=== PATIENT | male | born 1950 | race African-American/Black ===

== ENCOUNTER 2016-10-25 13:59 | Inpatient (IN) | payer OTHER ==
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
[2016-10-25] MEDS ORDERED: MAGNESIUM CITRATE 300 ML BOTTLE PO PRN (19:23)
[2016-10-25] MEDS ORDERED: LOPERAMIDE HCL 2 MG CAPSULE PO PRN (19:23)
[2016-10-25] MEDS ORDERED: METHADONE HCL 10 MG TABLET (FOR DETOX USE ONLY) PO ONE ×2 (19:23→23:00)
[2016-10-25] MEDS ORDERED: MAG HYDROX/AL HYDROX/SIMETH 30 ML UNIT-DOSE CUP PO PRN (19:23)
[2016-10-25] MEDS ORDERED: MAGNESIUM HYDROX 2400MG/30ML ORAL SUSPENSION 30 ML CUP PO PRN (19:23)
[2016-10-25] MEDS ORDERED: guaiFENesin/D-METHORPHAN HB 10 ML UNIT-DOSE CUPS PO PRN (19:23)
[2016-10-25] MEDS ORDERED: MENTHOL/PHENOL 1 EACH UD MM PRN (19:23)
[2016-10-25] MEDS ORDERED: NICOTINE POLACRILEX 2 MG GUM BC PRN (19:23)
[2016-10-25] MEDS ORDERED: P-EPHED 60MG/TRIPROLIDI 2.5MG TABLET PO PRN (19:23)
[2016-10-25] MEDS: diazePAM 5 MG TABLET PO PRN (20:24)
[2016-10-25 20:38] LABS: URINE APPEARANCE CLOUDY; URINE BILIRUBIN NEGATIVE (NEGATIVE); URINE BLOOD NEGATIVE (NEGATIVE); URINE COLOR YELLOW; URINE GLUCOSE (UA) NEGATIVE (NEGATIVE); URINE KETONE NEGATIVE (NEGATIVE); URINE NITRITE NEGATIVE (NEGATIVE); URINE PROTEIN NEGATIVE (NEGATIVE); URINE UROBILINOGEN NEGATIVE E.U./dl (0.2-1.0)
[2016-10-25 20:41] LABS: URINE LEUK ESTERASE 2+ (NEGATIVE)
[2016-10-25 20:46] LABS: URINE MUCUS RARE; URINE RBC 4 /hpf (0-3); URINE WBC 29 /hpf (3-5); YEAST FEW
[2016-10-25] MEDS: THIAMINE HCL 100 MG TABLET (FP) PO SCH (22:09)
[2016-10-25] MEDS: RANITIDINE HCL 150 MG TABLET (FP) PO SCH (22:10)
[2016-10-25] MEDS: diphenhydrAMINE HCL 50 MG CAPSULE PO PRN (22:10)
[2016-10-26] MEDS: diazePAM 5 MG TABLET PO PRN ×3 (06:00→17:13)
[2016-10-26] MEDS ORDERED: METHADONE HCL 10 MG TABLET (FOR DETOX USE ONLY) PO ONE (10:00)
[2016-10-26] MEDS: RANITIDINE HCL 150 MG TABLET (FP) PO SCH ×2 (10:08→22:04)
[2016-10-26] MEDS: PRENATAL VITAMINS W/ FOLIC ACID TABLET (FP) PO SCH (10:08)
--- NOTE | 2016-10-26 10:08 | PN ---
BHS COWS - Scale Resting Pulse: 1= [place] 81-100 Sweatin=Flushed/Facial Moisture Restless Observation: 1= Difficult to Sit Still Pupil Size: 0= Normal to Room Light Bone or Joint Aches: 1= Mild Discomfort Runny Nose/ Eye Tearin= Nasal Congestion GI Upset > 30mins: 2= Nausea/Diarrhea Tremor Observation of Outstretched Hands: 2= Slight Tremor Visible Yawning Observation: 1= 1-2x During Session Anxiety or Irritability: 2=Irritable/Anxious Goose Flesh Skin: 0=Smooth Skin COWS Score: 13 BHS Progress Note (SOAP) Subjective: Anxiety,tremors,sweating,interrupted sleep,restless. Objective: 10/26/16 10:06 Vital Signs - 8 hr 10/26/16 07:27 Temperature Pulse Rate 95 H Respiratory Rate Blood Pressure 135/81 10/26/16 09:33 Temperature 98.1 F Pulse Rate 88 Respiratory 18 Rate Blood Pressure 138/86 Laboratory Results - last 24 hr 10/25/16 20:07 Urine Color Yellow Urine Appearance Cloudy Urine pH 5.0 Ur Specific [place] 1.020 Urine Protein Negative Urine Glucose (UA) Negative Urine Ketones Negative Urine Blood Negative Urine Nitrite Negative Urine Bilirubin Negative Urine Urobilinogen Negative Ur Leukocyte Esterase 2+ H Urine RBC 4 Urine WBC 29 Ur Epithelial Cells Rare Urine Mucus Rare Urine Yeast Few u/a noted,we'll repeat Assessment: 10/26/16 10:07 Withdrawal sx. Plan: Continue detox
[2016-10-26] MEDS: NICOTINE 14 MG/24 HOURS TOPICAL PATCH TD SCH (10:10)
[2016-10-26 10:23] LABS: MCH 31.5 pg (25.7-33.7); MCHC 33.1 g/dl (32.0-35.9); MEAN CELL VOLUME 95.3 fl (80-96); MEAN PLT VOLUME 8.6 fl (7.5-11.1); PLATELET COUNT 263 K/MM3 (134-434); RDW 13.5 % (11.9-15.9); WHITE BLOOD COUNT 4.6 K/mm3 (4.0-10.0)
[2016-10-26 10:53] LABS: ALBUMIN 3.5 g/dl (3.4-5.0); CALCIUM 8.9 mg/dL (8.5-10.1)
[2016-10-26 11:01] LABS: BILIRUBIN,TOTAL 0.2 mg/dL (0.2-1.0); COCKROFT - GAULT 45.28; CREATININE 1.4 mg/dL (0.7-1.3); TOT PROT 6.4 g/dl (6.4-8.2)
--- NOTE | 2016-10-26 12:08 | CONSULT ---
[facility] Psychiatric Consult - Data Date of interview: 10/26/16 Admission source: [facility] Identifying data: Readmission to [facility] for this 66 y/o AA male seeking detox treatment on for heroin and cocaine dependence.Patient is single without children,homeless,unemployed and supported on Social Security benefits. Substance Abuse History: - Smoking Cessation. Smoking history: Current every day smoker. Have you smoked in the past 12 months: Yes. Aproximately how many cigarettes per day: 10. Cigars Per Day: 0. Hx Chewing Tobacco Use: No. Initiated information on smoking cessation: Yes. 'Breaking Loose' booklet given : 10/25/16. - Substance & Tx. History. Hx Alcohol Use: No. Hx Substance Use: Yes. Substance Use Type: Cocaine, Opiates. Hx Substance Use Treatment: Yes. - Substances Abused. Heroin. Route: Inhalation. Frequency: Daily. Amount used: 10 BAGS. Age of first use: 17. Date of Last Use: 10/24/16. Confirmed by patient. Medical History: Hepatitis C,GERD and past history of surgery for cancer of prostate in 2016 ([facility]). Psychiatric History: Patient denies. Physical/Sexual Abuse/Trauma History: Patient denies. Additional Comment: Urine Drug Screen Results: GURVINDER-Cocaine, OPI-Opiates.Noted. Mental Status Exam - Mental Status Exam Alert and Oriented to: Time, Place, Person Cognitive Function: Good Patient Appearance: Well Groomed Mood: Hopeful, Euthymic Affect: Appropriate, Normal Range Patient Behavior: Appropriate, Cooperative (friendly) Speech Pattern: Clear, Appropriate Voice Loudness: Normal Thought Process: Goal Oriented Thought Disorder: Not Present Hallucinations: Denies Suicidal Ideation: Denies Homicidal Ideation: Denies Insight/Judgement: Fair Sleep: Well Appetite: Good Muscle strength/Tone: Normal Gait/Station: Normal Psychiatric Findings - Problem List ([place] 1, 2,3) (1) Opioid dependence with withdrawal Current Visit: Yes Status: Acute (2) Cocaine dependence, uncomplicated Current Visit: Yes Status: Acute (3) Nicotine dependence Current Visit: Yes Status: Acute Qualifiers: Nicotine product type: cigarettes Substance use status: in withdrawal Qualified Code(s): F17.213 - Nicotine dependence, cigarettes, with withdrawal (4) GERD (gastroesophageal reflux disease) Current Visit: Yes Status: Chronic Qualifiers: Esophagitis presence: without esophagitis Qualified Code(s): K21.9 - Gastro-esophageal reflux disease without esophagitis (5) Essential (primary) hypertension Current Visit: Yes Status: Chronic - Initial Treatment Plan Initial Treatment Plan: Psychoeducation.Detoxification.Observation.
--- NOTE | 2016-10-26 17:19 | EKG ---
Test Reason : Blood Pressure : / mmHG Vent. Rate : 083 BPM Atrial Rate : 083 BPM P-R Int : 136 ms QRS Dur : 086 ms QT Int : 374 ms P-R-T Axes : 072 -16 -51 degrees QTc Int : 439 ms NORMAL SINUS RHYTHM NORMAL ECG WHEN COMPARED WITH ECG OF 25-OCT-2016 19:14, NO SIGNIFICANT CHANGE WAS FOUND Confirmed by EBER WILSON MD ([id number]) on 10/26/2016 5:18:43 PM Referred By: Mark Alicea Confirmed By:EBER WILSON MD
[2016-10-26 19:15] LABS: URINE APPEARANCE CLEAR; URINE BILIRUBIN NEGATIVE (NEGATIVE); URINE BLOOD NEGATIVE (NEGATIVE); URINE COLOR YELLOW; URINE GLUCOSE (UA) NEGATIVE (NEGATIVE); URINE KETONE NEGATIVE (NEGATIVE); URINE LEUK ESTERASE TRACE (NEGATIVE); URINE NITRITE NEGATIVE (NEGATIVE); URINE PROTEIN NEGATIVE (NEGATIVE); URINE UROBILINOGEN NEGATIVE E.U./dl (0.2-1.0)
[2016-10-26 19:36] LABS: CALCIUM OXALATE CRYSTALS RARE /hpf (NONE SEEN); URINE MUCUS RARE; URINE RBC 36 /hpf (0-3); URINE WBC 32 /hpf (3-5)
[2016-10-26] MEDS: THIAMINE HCL 100 MG TABLET (FP) PO SCH (22:04)
[2016-10-26] MEDS: diphenhydrAMINE HCL 50 MG CAPSULE PO PRN (22:04)
[2016-10-27] MEDS: diazePAM 5 MG TABLET PO PRN ×3 (08:46→22:03)
--- NOTE | 2016-10-27 09:57 | PN ---
S COWS - Scale Resting Pulse: 1= [place] 81-100 Sweatin= Chills/Flushing Restless Observation: 3= Extraneous Movement Pupil Size: 1= Pupils >than Normal Bone or Joint Aches: 2= Severe Diffuse Aches Runny Nose/ Eye Tearin= Runny Nose/Eyes GI Upset > 30mins: 2= Nausea/Diarrhea Tremor Observation of Outstretched Hands: 2= Slight Tremor Visible Yawning Observation: 1= 1-2x During Session Anxiety or Irritability: 2=Irritable/Anxious Goose Flesh Skin: 0=Smooth Skin COWS Score: 17 S Progress Note (SOAP) Subjective: ALERT,IRRITABLE,ANXIOUS,INTERRUPTED SLEEP,PAIN IN THE BODY AND BACK,TREMOR Objective: 10/27/16 09:52 Vital Signs Temperature 97.2 F L 10/27/16 06:27 Pulse Rate 74 10/27/16 06:27 Respiratory Rate 18 10/27/16 06:27 Blood Pressure 152/100 10/27/16 06:27 O2 Sat by Pulse Oximetry (%) Laboratory Last Values WBC 4.6 K/mm3 (4.0-10.0) 10/26/16 06:00 RBC 4.38 M/mm3 (4.00-5.60) 10/26/16 06:00 Hgb 13.8 GM/dL (11.7-16.9) D 10/26/16 06:00 Hct 41.8 % (35.4-49) D 10/26/16 06:00 MCV 95.3 fl (80-96) 10/26/16 06:00 MCHC 33.1 g/dl (32.0-35.9) 10/26/16 06:00 RDW 13.5 % (11.9-15.9) 10/26/16 06:00 Plt Count 263 K/MM3 (134-434) 10/26/16 06:00 MPV 8.6 fl (7.5-11.1) 10/26/16 06:00 Sodium 142 mmol/L (136-145) 10/26/16 06:00 Potassium 4.4 mmol/L (3.5-5.1) 10/26/16 06:00 Chloride 105 mmol/L (98-107) 10/26/16 06:00 Carbon Dioxide 30 mmol/L (21-32) 10/26/16 06:00 Anion Gap 7 (8-16) L 10/26/16 06:00 BUN 18 mg/dL (7-18) 10/26/16 06:00 Creatinine 1.4 mg/dL (0.7-1.3) H D 10/26/16 06:00 Creat Clearance w eGFR 50.70 (>60) 10/26/16 06:00 Random Glucose 130 mg/dL (74-106) H D 10/26/16 06:00 Calcium 8.9 mg/dL (8.5-10.1) 10/26/16 06:00 Total Bilirubin 0.2 mg/dL (0.2-1.0) D 10/26/16 06:00 AST 18 U/L (15-37) D 10/26/16 06:00 ALT 17 U/L (12-78) D 10/26/16 06:00 Alkaline Phosphatase 107 U/L (45-117) 10/26/16 06:00 Total Protein 6.4 g/dl (6.4-8.2) D 10/26/16 06:00 Albumin 3.5 g/dl (3.4-5.0) 10/26/16 06:00 Urine Color Yellow 10/26/16 18:30 Urine Appearance Clear 10/26/16 18:30 Urine pH 5.0 (5.0-8.0) 10/26/16 18:30 Ur Specific [place] 1.020 (1.005-1.025) 10/26/16 18:30 Urine Protein Negative (NEGATIVE) 10/26/16 18:30 Urine Glucose (UA) Negative (NEGATIVE) 10/26/16 18:30 Urine Ketones Negative (NEGATIVE) 10/26/16 18:30 Urine Blood Negative (NEGATIVE) 10/26/16 18:30 Urine Nitrite Negative (NEGATIVE) 10/26/16 18:30 Urine Bilirubin Negative (NEGATIVE) 10/26/16 18:30 Urine Urobilinogen Negative E.U./dl (0.2-1.0) 10/26/16 18:30 Ur Leukocyte Esterase Trace (NEGATIVE) H D 10/26/16 18:30 Urine RBC 36 /hpf (0-3) 10/26/16 18:30 Urine WBC 32 /hpf (3-5) 10/26/16 18:30 Ur Epithelial Cells Rare /hpf (FEW) 10/26/16 18:30 Calcium Oxalate Crystal Rare /hpf (NONE SEEN) 10/26/16 18:30 Urine Mucus Rare 10/26/16 18:30 Urine Yeast Few 10/25/16 20:07 RPR Titer Nonreactive (NONREACTIVE) 10/26/16 06:00 PATIENT HAD HISTORY OF CANCER OF PROSTATE S/P SURGERY AT [facility] IN 2016 ASYMPTOMATIC NO URINARY PROBLEM Assessment: 10/27/16 09:55 WITHDRAWAL SYMPTOM Plan: CONTINUE DETOX,ADVISE FOLLOW UP WITH UROLOGIST AT [facility] FOR FOLLOW UP INITIAL GLUCOSE IS 130 WITLL DO FASTING BLOOD GLUCOSE IN AM
[2016-10-27] MEDS ORDERED: METHADONE HCL 5 MG TABLET (FOR DETOX USE ONLY) PO ONE (10:00)
[2016-10-27] MEDS: PRENATAL VITAMINS W/ FOLIC ACID TABLET (FP) PO SCH (10:09)
[2016-10-27] MEDS: NICOTINE 14 MG/24 HOURS TOPICAL PATCH TD SCH (10:09)
[2016-10-27] MEDS: RANITIDINE HCL 150 MG TABLET (FP) PO SCH ×2 (10:09→22:02)
[2016-10-27] MEDS: THIAMINE HCL 100 MG TABLET (FP) PO SCH (22:02)
[2016-10-27] MEDS: diphenhydrAMINE HCL 50 MG CAPSULE PO PRN (22:03)
[2016-10-28] MEDS ORDERED: ONDANSETRON *ODT* 4 MG TABLET SL PRN (09:36)
--- NOTE | 2016-10-28 09:42 | PN ---
BHS Progress Note (SOAP) Subjective: Sweating,interrupted sleep,restless. Objective: 10/28/16 09:38 Vital Signs - 8 hr 10/28/16 10/28/16 10/28/16 03:20 06:08 09:19 Temperature 98.4 F 97.2 F L Pulse Rate 91 H 96 H Respiratory 18 18 20 Rate Blood Pressure 144/90 125/83 Laboratory Tests 10/25/16 10/26/16 10/26/16 20:07 06:00 06:00 WBC 4.6 RBC 4.38 Hgb 13.8 D Hct 41.8 D MCV 95.3 MCHC 33.1 RDW 13.5 Plt Count 263 MPV 8.6 Sodium 142 Potassium 4.4 Chloride 105 Carbon Dioxide 30 Anion Gap 7 L BUN 18 Creatinine 1.4 H D Creat Clearance w eGFR 50.70 POC Glucometer Random Glucose 130 H D Calcium 8.9 Total Bilirubin 0.2 D AST 18 D ALT 17 D Alkaline Phosphatase 107 Total Protein 6.4 D Albumin 3.5 Urine Color Yellow Urine Appearance Cloudy Urine pH 5.0 Ur Specific [place] 1.020 Urine Protein Negative Urine Glucose (UA) Negative Urine Ketones Negative Urine Blood Negative Urine Nitrite Negative Urine Bilirubin Negative Urine Urobilinogen Negative Ur Leukocyte Esterase 2+ H Urine RBC 4 Urine WBC 29 Ur Epithelial Cells Rare Calcium Oxalate Crystal Urine Mucus Rare Urine Yeast Few RPR Titer 10/26/16 10/26/16 10/28/16 06:00 18:30 05:16 WBC RBC Hgb Hct MCV MCHC RDW Plt Count MPV Sodium Potassium Chloride Carbon Dioxide Anion Gap BUN Creatinine Creat Clearance w eGFR POC Glucometer 108 Random Glucose Calcium Total Bilirubin AST ALT Alkaline Phosphatase Total Protein Albumin Urine Color Yellow Urine Appearance Clear Urine pH 5.0 Ur Specific [place] 1.020 Urine Protein Negative Urine Glucose (UA) Negative Urine Ketones Negative Urine Blood Negative Urine Nitrite Negative Urine Bilirubin Negative Urine Urobilinogen Negative Ur Leukocyte Esterase Trace H D Urine RBC 36 Urine WBC 32 Ur Epithelial Cells Rare Calcium Oxalate Crystal Rare Urine Mucus Rare Urine Yeast RPR Titer Nonreactive U/A x 2 grossly abnormal Assessment: 10/28/16 09:40 Withdrawal sx. Elevated wbc in urine Plan: Continue detox nitrofurantoin
[2016-10-28] MEDS ORDERED: NITROFURANTOIN MACROCRYSTAL 50 MG CAPSULE (FP) PO ONE (09:45)
[2016-10-28] MEDS ORDERED: NITROFURANTOIN MACROCRYSTAL 50 MG CAPSULE (FP) PO SCH (09:45)
[2016-10-28] MEDS ORDERED: METHADONE HCL 5 MG TABLET (FOR DETOX USE ONLY) PO ONE (10:00)
[2016-10-28] MEDS: PRENATAL VITAMINS W/ FOLIC ACID TABLET (FP) PO SCH (10:02)
[2016-10-28] MEDS: RANITIDINE HCL 150 MG TABLET (FP) PO SCH ×2 (10:02→22:06)
[2016-10-28] MEDS: NICOTINE 14 MG/24 HOURS TOPICAL PATCH TD SCH (10:03)
[2016-10-28] MEDS: AMMONIUM LACTATE 12% LOTION 225 GM BOTTLE TP SCH (11:26)
[2016-10-28] MEDS: NITROFURANTOIN MACROCRYSTAL 50 MG CAPSULE (FP) PO SCH ×3 (11:28→23:09)
[2016-10-28] MEDS: COLLOIDAL OATMEAL 1 BAR EACH TP PRN (12:42)
[2016-10-28 15:26] LABS: URINE APPEARANCE CLEAR; URINE BILIRUBIN NEGATIVE (NEGATIVE); URINE BLOOD NEGATIVE (NEGATIVE); URINE COLOR LTYELLOW; URINE GLUCOSE (UA) NEGATIVE (NEGATIVE); URINE KETONE NEGATIVE (NEGATIVE); URINE LEUK ESTERASE NEGATIVE (NEGATIVE); URINE NITRITE NEGATIVE (NEGATIVE); URINE PROTEIN NEGATIVE (NEGATIVE); URINE UROBILINOGEN NEGATIVE E.U./dl (0.2-1.0)
[2016-10-28] MEDS: diazePAM 5 MG TABLET PO PRN (17:19)
[2016-10-28] MEDS: THIAMINE HCL 100 MG TABLET (FP) PO SCH (22:06)
[2016-10-28] MEDS: diphenhydrAMINE HCL 50 MG CAPSULE PO PRN (22:07)
[2016-10-29] MEDS: NITROFURANTOIN MACROCRYSTAL 50 MG CAPSULE (FP) PO SCH ×3 (05:03→17:31)
[2016-10-29] MEDS ORDERED: METHADONE HCL 10 MG TABLET (FOR DETOX USE ONLY) PO ONE (10:00)
[2016-10-29] MEDS: PRENATAL VITAMINS W/ FOLIC ACID TABLET (FP) PO SCH (10:04)
[2016-10-29] MEDS: RANITIDINE HCL 150 MG TABLET (FP) PO SCH ×2 (10:04→22:14)
[2016-10-29] MEDS: AMMONIUM LACTATE 12% LOTION 225 GM BOTTLE TP SCH (10:05)
[2016-10-29] MEDS: NICOTINE 14 MG/24 HOURS TOPICAL PATCH TD SCH (10:05)
--- NOTE | 2016-10-29 10:55 | PN ---
BHS Progress Note (SOAP) Subjective: Sweating,interrupted sleep,restless Objective: 10/29/16 10:53 Vital Signs - 8 hr 10/29/16 10/29/16 10/29/16 03:29 06:10 07:41 Temperature 97.6 F Pulse Rate 78 88 Respiratory 18 18 Rate Blood Pressure 165/105 137/72 10/29/16 09:40 Temperature 97.2 F L Pulse Rate 92 H Respiratory 18 Rate Blood Pressure 147/98 Breath Alcohol Content Breath Alcohol Content 0 Laboratory Last Values WBC 4.6 K/mm3 (4.0-10.0) 10/26/16 06:00 RBC 4.38 M/mm3 (4.00-5.60) 10/26/16 06:00 Hgb 13.8 GM/dL (11.7-16.9) D 10/26/16 06:00 Hct 41.8 % (35.4-49) D 10/26/16 06:00 MCV 95.3 fl (80-96) 10/26/16 06:00 MCHC 33.1 g/dl (32.0-35.9) 10/26/16 06:00 RDW 13.5 % (11.9-15.9) 10/26/16 06:00 Plt Count 263 K/MM3 (134-434) 10/26/16 06:00 MPV 8.6 fl (7.5-11.1) 10/26/16 06:00 Sodium 142 mmol/L (136-145) 10/26/16 06:00 Potassium 4.4 mmol/L (3.5-5.1) 10/26/16 06:00 Chloride 105 mmol/L (98-107) 10/26/16 06:00 Carbon Dioxide 30 mmol/L (21-32) 10/26/16 06:00 Anion Gap 7 (8-16) L 10/26/16 06:00 BUN 18 mg/dL (7-18) 10/26/16 06:00 Creatinine 1.4 mg/dL (0.7-1.3) H D 10/26/16 06:00 Creat Clearance w eGFR 50.70 (>60) 10/26/16 06:00 POC Glucometer 108 UNITS (()) 10/28/16 05:16 Random Glucose 130 mg/dL (74-106) H D 10/26/16 06:00 Calcium 8.9 mg/dL (8.5-10.1) 10/26/16 06:00 Total Bilirubin 0.2 mg/dL (0.2-1.0) D 10/26/16 06:00 AST 18 U/L (15-37) D 10/26/16 06:00 ALT 17 U/L (12-78) D 10/26/16 06:00 Alkaline Phosphatase 107 U/L (45-117) 10/26/16 06:00 Total Protein 6.4 g/dl (6.4-8.2) D 10/26/16 06:00 Albumin 3.5 g/dl (3.4-5.0) 10/26/16 06:00 Urine Color Ltyellow 10/28/16 11:15 Urine Appearance Clear 10/28/16 11:15 Urine pH 7.0 (5.0-8.0) D 10/28/16 11:15 Ur Specific [place] 1.020 (1.005-1.025) 10/28/16 11:15 Urine Protein Negative (NEGATIVE) 10/28/16 11:15 Urine Glucose (UA) Negative (NEGATIVE) 10/28/16 11:15 Urine Ketones Negative (NEGATIVE) 10/28/16 11:15 Urine Blood Negative (NEGATIVE) 10/28/16 11:15 Urine Nitrite Negative (NEGATIVE) 10/28/16 11:15 Urine Bilirubin Negative (NEGATIVE) 10/28/16 11:15 Urine Urobilinogen Negative E.U./dl (0.2-1.0) 10/28/16 11:15 Ur Leukocyte Esterase Negative (NEGATIVE) 10/28/16 11:15 Urine RBC 36 /hpf (0-3) 10/26/16 18:30 Urine WBC 32 /hpf (3-5) 10/26/16 18:30 Ur Epithelial Cells Rare /hpf (FEW) 10/26/16 18:30 Calcium Oxalate Crystal Rare /hpf (NONE SEEN) 10/26/16 18:30 Urine Mucus Rare 10/26/16 18:30 Urine Yeast Few 10/25/16 20:07 RPR Titer Nonreactive (NONREACTIVE) 10/26/16 06:00 labs noted Assessment: 10/29/16 10:54 Withdrawal sx. Plan: Continue detox
[2016-10-29] MEDS: amLODIPine BESYLATE 10 MG TABLET (FP) PO SCH (12:45)
--- NOTE | 2016-10-29 14:45 | EKG ---
Test Reason : Blood Pressure : / mmHG Vent. Rate : 093 BPM Atrial Rate : 093 BPM P-R Int : 134 ms QRS Dur : 080 ms QT Int : 360 ms P-R-T Axes : 075 -16 -34 degrees QTc Int : 447 ms NORMAL SINUS RHYTHM SEPTAL INFARCT , AGE UNDETERMINED ABNORMAL ECG NO PREVIOUS ECGS AVAILABLE Confirmed by EBER WILSON MD ([id number]) on 10/26/2016 5:20:32 PM Also confirmed by EBER WILSON MD ([id number]), publications editor RAMU ADKINS ([id number]) on 10/29/2016 2:45:41 PM Referred By: Mark Alicea Confirmed By:EBER WILSON MD
[2016-10-29] MEDS: diphenhydrAMINE HCL 50 MG CAPSULE PO PRN (22:14)
[2016-10-29] MEDS: THIAMINE HCL 100 MG TABLET (FP) PO SCH (22:14)
[2016-10-30] MEDS: NITROFURANTOIN MACROCRYSTAL 50 MG CAPSULE (FP) PO SCH ×5 (00:02→22:59)
[2016-10-30] MEDS ORDERED: METHADONE HCL 5 MG TABLET (FOR DETOX USE ONLY) PO ONE (06:00)
[2016-10-30] MEDS: AMMONIUM LACTATE 12% LOTION 225 GM BOTTLE TP SCH (10:08)
[2016-10-30] MEDS: RANITIDINE HCL 150 MG TABLET (FP) PO SCH ×2 (10:08→22:05)
[2016-10-30] MEDS: NICOTINE 14 MG/24 HOURS TOPICAL PATCH TD SCH (10:08)
[2016-10-30] MEDS: amLODIPine BESYLATE 10 MG TABLET (FP) PO SCH (10:08)
[2016-10-30] MEDS: PRENATAL VITAMINS W/ FOLIC ACID TABLET (FP) PO SCH (10:08)
--- NOTE | 2016-10-30 15:09 | PN ---
BHS Progress Note (SOAP) Subjective: Tremors, Sweating. Objective: PT. A & O X 3, OBSERVED AMBULATING ON UNIT. PT. DENIES CHEST PAIN. 10/30/16 15:05 Vital Signs Temperature 96.8 F L 10/30/16 12:59 Pulse Rate 87 10/30/16 12:59 Respiratory Rate 18 10/30/16 12:59 Blood Pressure 128/83 10/30/16 12:59 O2 Sat by Pulse Oximetry (%) Laboratory Last Values WBC 4.6 K/mm3 (4.0-10.0) 10/26/16 06:00 RBC 4.38 M/mm3 (4.00-5.60) 10/26/16 06:00 Hgb 13.8 GM/dL (11.7-16.9) D 10/26/16 06:00 Hct 41.8 % (35.4-49) D 10/26/16 06:00 MCV 95.3 fl (80-96) 10/26/16 06:00 MCHC 33.1 g/dl (32.0-35.9) 10/26/16 06:00 RDW 13.5 % (11.9-15.9) 10/26/16 06:00 Plt Count 263 K/MM3 (134-434) 10/26/16 06:00 MPV 8.6 fl (7.5-11.1) 10/26/16 06:00 Sodium 142 mmol/L (136-145) 10/26/16 06:00 Potassium 4.4 mmol/L (3.5-5.1) 10/26/16 06:00 Chloride 105 mmol/L (98-107) 10/26/16 06:00 Carbon Dioxide 30 mmol/L (21-32) 10/26/16 06:00 Anion Gap 7 (8-16) L 10/26/16 06:00 BUN 18 mg/dL (7-18) 10/26/16 06:00 Creatinine 1.4 mg/dL (0.7-1.3) H D 10/26/16 06:00 Creat Clearance w eGFR 50.70 (>60) 10/26/16 06:00 POC Glucometer 108 UNITS (()) 10/28/16 05:16 Random Glucose 130 mg/dL (74-106) H D 10/26/16 06:00 Calcium 8.9 mg/dL (8.5-10.1) 10/26/16 06:00 Total Bilirubin 0.2 mg/dL (0.2-1.0) D 10/26/16 06:00 AST 18 U/L (15-37) D 10/26/16 06:00 ALT 17 U/L (12-78) D 10/26/16 06:00 Alkaline Phosphatase 107 U/L (45-117) 10/26/16 06:00 Total Protein 6.4 g/dl (6.4-8.2) D 10/26/16 06:00 Albumin 3.5 g/dl (3.4-5.0) 10/26/16 06:00 Urine Color Ltyellow 10/28/16 11:15 Urine Appearance Clear 10/28/16 11:15 Urine pH 7.0 (5.0-8.0) D 10/28/16 11:15 Ur Specific [place] 1.020 (1.005-1.025) 10/28/16 11:15 Urine Protein Negative (NEGATIVE) 10/28/16 11:15 Urine Glucose (UA) Negative (NEGATIVE) 10/28/16 11:15 Urine Ketones Negative (NEGATIVE) 10/28/16 11:15 Urine Blood Negative (NEGATIVE) 10/28/16 11:15 Urine Nitrite Negative (NEGATIVE) 10/28/16 11:15 Urine Bilirubin Negative (NEGATIVE) 10/28/16 11:15 Urine Urobilinogen Negative E.U./dl (0.2-1.0) 10/28/16 11:15 Ur Leukocyte Esterase Negative (NEGATIVE) 10/28/16 11:15 Urine RBC 36 /hpf (0-3) 10/26/16 18:30 Urine WBC 32 /hpf (3-5) 10/26/16 18:30 Ur Epithelial Cells Rare /hpf (FEW) 10/26/16 18:30 Calcium Oxalate Crystal Rare /hpf (NONE SEEN) 10/26/16 18:30 Urine Mucus Rare 10/26/16 18:30 Urine Yeast Few 10/25/16 20:07 RPR Titer Nonreactive (NONREACTIVE) 10/26/16 06:00 LABS NOTED. 10/30/16 15:07 Assessment: 10/30/16 15:07 WITHDRAWAL SYMPTOMS. Plan: CONTINUE DETOX.
[2016-10-30] MEDS: THIAMINE HCL 100 MG TABLET (FP) PO SCH (22:04)
[2016-10-30] MEDS: diphenhydrAMINE HCL 50 MG CAPSULE PO PRN (22:05)
[2016-10-31] MEDS: NITROFURANTOIN MACROCRYSTAL 50 MG CAPSULE (FP) PO SCH ×4 (05:27→23:26)
[2016-10-31] MEDS: amLODIPine BESYLATE 10 MG TABLET (FP) PO SCH (10:03)
[2016-10-31] MEDS: PRENATAL VITAMINS W/ FOLIC ACID TABLET (FP) PO SCH (10:04)
[2016-10-31] MEDS: RANITIDINE HCL 150 MG TABLET (FP) PO SCH ×2 (10:04→22:02)
[2016-10-31] MEDS: NICOTINE 14 MG/24 HOURS TOPICAL PATCH TD SCH (10:04)
[2016-10-31] MEDS: AMMONIUM LACTATE 12% LOTION 225 GM BOTTLE TP SCH (10:05)
--- NOTE | 2016-10-31 14:26 | PN ---
S Progress Note (SOAP) Subjective: anxious, sweating, nausea, interrupted sleep Objective: 10/31/16 14:24 Last Vital Signs Temp Pulse Resp BP Pulse Ox 98.7 F 93 H 16 133/86 10/31/16 13:07 10/31/16 13:07 10/31/16 13:07 10/31/16 13:07 Laboratory Last Values WBC 4.6 K/mm3 (4.0-10.0) 10/26/16 06:00 RBC 4.38 M/mm3 (4.00-5.60) 10/26/16 06:00 Hgb 13.8 GM/dL (11.7-16.9) D 10/26/16 06:00 Hct 41.8 % (35.4-49) D 10/26/16 06:00 MCV 95.3 fl (80-96) 10/26/16 06:00 MCHC 33.1 g/dl (32.0-35.9) 10/26/16 06:00 RDW 13.5 % (11.9-15.9) 10/26/16 06:00 Plt Count 263 K/MM3 (134-434) 10/26/16 06:00 MPV 8.6 fl (7.5-11.1) 10/26/16 06:00 Sodium 142 mmol/L (136-145) 10/26/16 06:00 Potassium 4.4 mmol/L (3.5-5.1) 10/26/16 06:00 Chloride 105 mmol/L (98-107) 10/26/16 06:00 Carbon Dioxide 30 mmol/L (21-32) 10/26/16 06:00 Anion Gap 7 (8-16) L 10/26/16 06:00 BUN 18 mg/dL (7-18) 10/26/16 06:00 Creatinine 1.4 mg/dL (0.7-1.3) H D 10/26/16 06:00 Creat Clearance w eGFR 50.70 (>60) 10/26/16 06:00 POC Glucometer 108 UNITS (()) 10/28/16 05:16 Random Glucose 130 mg/dL (74-106) H D 10/26/16 06:00 Calcium 8.9 mg/dL (8.5-10.1) 10/26/16 06:00 Total Bilirubin 0.2 mg/dL (0.2-1.0) D 10/26/16 06:00 AST 18 U/L (15-37) D 10/26/16 06:00 ALT 17 U/L (12-78) D 10/26/16 06:00 Alkaline Phosphatase 107 U/L (45-117) 10/26/16 06:00 Total Protein 6.4 g/dl (6.4-8.2) D 10/26/16 06:00 Albumin 3.5 g/dl (3.4-5.0) 10/26/16 06:00 Urine Color Ltyellow 10/28/16 11:15 Urine Appearance Clear 10/28/16 11:15 Urine pH 7.0 (5.0-8.0) D 10/28/16 11:15 Ur Specific [place] 1.020 (1.005-1.025) 10/28/16 11:15 Urine Protein Negative (NEGATIVE) 10/28/16 11:15 Urine Glucose (UA) Negative (NEGATIVE) 10/28/16 11:15 Urine Ketones Negative (NEGATIVE) 10/28/16 11:15 Urine Blood Negative (NEGATIVE) 10/28/16 11:15 Urine Nitrite Negative (NEGATIVE) 10/28/16 11:15 Urine Bilirubin Negative (NEGATIVE) 10/28/16 11:15 Urine Urobilinogen Negative E.U./dl (0.2-1.0) 10/28/16 11:15 Ur Leukocyte Esterase Negative (NEGATIVE) 10/28/16 11:15 Urine RBC 36 /hpf (0-3) 10/26/16 18:30 Urine WBC 32 /hpf (3-5) 10/26/16 18:30 Ur Epithelial Cells Rare /hpf (FEW) 10/26/16 18:30 Calcium Oxalate Crystal Rare /hpf (NONE SEEN) 10/26/16 18:30 Urine Mucus Rare 10/26/16 18:30 Urine Yeast Few 10/25/16 20:07 RPR Titer Nonreactive (NONREACTIVE) 10/26/16 06:00 Labs noted Assessment: 10/31/16 14:25 Withdrawal symptoms Plan: Continue detox Encouraged to drink lots of water
[2016-10-31] MEDS: THIAMINE HCL 100 MG TABLET (FP) PO SCH (22:02)
[2016-10-31] MEDS: diphenhydrAMINE HCL 50 MG CAPSULE PO PRN (22:02)
[2016-11-01] MEDS: NITROFURANTOIN MACROCRYSTAL 50 MG CAPSULE (FP) PO SCH ×3 (05:45→17:50)
[2016-11-01] MEDS: RANITIDINE HCL 150 MG TABLET (FP) PO SCH ×2 (10:09→21:55)
[2016-11-01] MEDS: PRENATAL VITAMINS W/ FOLIC ACID TABLET (FP) PO SCH (10:09)
[2016-11-01] MEDS: amLODIPine BESYLATE 10 MG TABLET (FP) PO SCH (10:09)
[2016-11-01] MEDS: NICOTINE 14 MG/24 HOURS TOPICAL PATCH TD SCH (10:10)
[2016-11-01] MEDS: AMMONIUM LACTATE 12% LOTION 225 GM BOTTLE TP SCH (10:10)
--- NOTE | 2016-11-01 10:47 | DS ---
[facility] Detox Discharge Summary Admission Date: 10/25/16 Discharge Date: 11/01/16 - History Present History: Opioid Dependence Pertinent Past History: HTN GERD - Physical Exam Results Vital Signs: Vital Signs Temperature 98.2 F 11/01/16 09:31 Pulse Rate 98 H 11/01/16 09:31 Respiratory Rate 20 11/01/16 09:31 Blood Pressure 120/85 11/01/16 09:31 O2 Sat by Pulse Oximetry (%) Pertinent Admission Physical Exam Findings: Withdrawal sx Laboratory Last Values WBC 4.6 K/mm3 (4.0-10.0) 10/26/16 06:00 RBC 4.38 M/mm3 (4.00-5.60) 10/26/16 06:00 Hgb 13.8 GM/dL (11.7-16.9) D 10/26/16 06:00 Hct 41.8 % (35.4-49) D 10/26/16 06:00 MCV 95.3 fl (80-96) 10/26/16 06:00 MCHC 33.1 g/dl (32.0-35.9) 10/26/16 06:00 RDW 13.5 % (11.9-15.9) 10/26/16 06:00 Plt Count 263 K/MM3 (134-434) 10/26/16 06:00 MPV 8.6 fl (7.5-11.1) 10/26/16 06:00 Sodium 142 mmol/L (136-145) 10/26/16 06:00 Potassium 4.4 mmol/L (3.5-5.1) 10/26/16 06:00 Chloride 105 mmol/L (98-107) 10/26/16 06:00 Carbon Dioxide 30 mmol/L (21-32) 10/26/16 06:00 Anion Gap 7 (8-16) L 10/26/16 06:00 BUN 18 mg/dL (7-18) 10/26/16 06:00 Creatinine 1.4 mg/dL (0.7-1.3) H D 10/26/16 06:00 Creat Clearance w eGFR 50.70 (>60) 10/26/16 06:00 POC Glucometer 108 UNITS (()) 10/28/16 05:16 Random Glucose 130 mg/dL (74-106) H D 10/26/16 06:00 Calcium 8.9 mg/dL (8.5-10.1) 10/26/16 06:00 Total Bilirubin 0.2 mg/dL (0.2-1.0) D 10/26/16 06:00 AST 18 U/L (15-37) D 10/26/16 06:00 ALT 17 U/L (12-78) D 10/26/16 06:00 Alkaline Phosphatase 107 U/L (45-117) 10/26/16 06:00 Total Protein 6.4 g/dl (6.4-8.2) D 10/26/16 06:00 Albumin 3.5 g/dl (3.4-5.0) 10/26/16 06:00 Urine Color Ltyellow 10/28/16 11:15 Urine Appearance Clear 10/28/16 11:15 Urine pH 7.0 (5.0-8.0) D 10/28/16 11:15 Ur Specific [place] 1.020 (1.005-1.025) 10/28/16 11:15 Urine Protein Negative (NEGATIVE) 10/28/16 11:15 Urine Glucose (UA) Negative (NEGATIVE) 10/28/16 11:15 Urine Ketones Negative (NEGATIVE) 10/28/16 11:15 Urine Blood Negative (NEGATIVE) 10/28/16 11:15 Urine Nitrite Negative (NEGATIVE) 10/28/16 11:15 Urine Bilirubin Negative (NEGATIVE) 10/28/16 11:15 Urine Urobilinogen Negative E.U./dl (0.2-1.0) 10/28/16 11:15 Ur Leukocyte Esterase Negative (NEGATIVE) 10/28/16 11:15 Urine RBC 36 /hpf (0-3) 10/26/16 18:30 Urine WBC 32 /hpf (3-5) 10/26/16 18:30 Ur Epithelial Cells Rare /hpf (FEW) 10/26/16 18:30 Calcium Oxalate Crystal Rare /hpf (NONE SEEN) 10/26/16 18:30 Urine Mucus Rare 10/26/16 18:30 Urine Yeast Few 10/25/16 20:07 RPR Titer Nonreactive (NONREACTIVE) 10/26/16 06:00 labs noted, U/A on 10/28 = negative - Treatment Hospital Course: Detox Protocol Followed, Detoxed Safely, Responded well, Discharged Condition Good, Rehab Referral Accepted Patient has Accepted a Rehab Referral to: [facility] - Medication Discharge Medications: Ambulatory Orders Unobtainable [Unobtainable] 10/25/16 - Diagnosis (1) Nicotine dependence Current Visit: Yes Status: Acute Qualifiers: Nicotine product type: cigarettes Substance use status: in withdrawal Qualified Code(s): F17.213 - Nicotine dependence, cigarettes, with withdrawal (2) Opioid dependence with withdrawal Current Visit: Yes Status: Acute (3) Essential (primary) hypertension Current Visit: Yes Status: Chronic (4) GERD (gastroesophageal reflux disease) Current Visit: Yes Status: Chronic Qualifiers: Esophagitis presence: without esophagitis Qualified Code(s): K21.9 - Gastro-esophageal reflux disease without esophagitis - AMA Did Patient Leave Against Medical Advice: No
[2016-11-01 11:46] VITALS: BMI 21.6
[2016-11-01] MEDS ORDERED: PT OWN MED DRAWER 7, Y5N ONE ×2 (16:08→20:49)
[2016-11-01] MEDS: diphenhydrAMINE HCL 50 MG CAPSULE PO PRN (21:55)
[2016-11-01] MEDS: THIAMINE HCL 100 MG TABLET (FP) PO SCH (21:55)
[2016-11-02] MEDS: NITROFURANTOIN MACROCRYSTAL 50 MG CAPSULE (FP) PO SCH ×5 (00:02→23:04)
--- NOTE | 2016-11-02 06:54 | HP ---
Psychiatrist Admission - Data Date of interview: 11/02/16 Admission source: 3N Identifying data: This is the second [facility] admission for this 66 years old single Black male, father of a 35 years old daughter, retired from the [employer] on social security benefit, homeless Medical History: Significant for treatment for hepatitis C, GERD and past history of surgery for cancer of prostate in 2016 ([facility]). Smokes 10 cigarettes daily Psychiatric History: Denies history of previous psychiatric treatment Physical/Sexual Abuse/Trauma History: Denies history of emotional, physical or sexual abuse as well as DV relationship Additional Comment: Reports history of a few misdemeanor arrests. Denies being on pration at present Vital Signs: Vital Signs - 24 hr 11/01/16 11/01/16 11/02/16 09:31 11:40 00:30 Temperature 98.2 F 98.0 F Pulse Rate 98 H 92 H Respiratory 20 20 18 Rate Blood Pressure 120/85 116/82 11/02/16 11/02/16 03:30 06:47 Temperature 98.3 F Pulse Rate 101 H Respiratory 18 18 Rate Blood Pressure 136/88 Allergies/Adverse Reactions: Allergies Allergy/AdvReac Type Severity Reaction Status Date / Time No Known Allergies Allergy Verified 10/25/16 17:06 Date of last physical exam: 10/25/16 Concur with the findings of this exam: Yes - Substance Abuse/Tx History Hx Alcohol Use: No Hx Substance Use: Yes Substance Use Type: Heroin (Started using heroin at age 17, consumes 10 bags daily. Last used on 10/24/16) Hx Substance Use Treatment: Yes (2 previous inpt detox & one inpt rehab @ [facility]) - Admission Criteria Previous failed treatment: No Poor recovery environment: Yes Comorbidities: Yes Lacks judgement: Yes Mental Status Exam - Mental Status Exam Alert and Oriented to: Time, Place, Person Cognitive Function: Fair Patient Appearance: Well Groomed Mood: Hopeful, Euthymic Patient Behavior: Cooperative Speech Pattern: Clear Voice Loudness: Normal Thought Process: Intact, Goal Oriented Thought Disorder: Not Present Hallucinations: Denies Suicidal Ideation: Denies Homicidal Ideation: Denies Insight/Judgement: Fair Sleep: Well Appetite: Good Muscle strength/Tone: Normal Gait/Station: Normal Psychiatric Findings - Problem List ([place] 1, 2,3) (1) Opioid dependence with withdrawal Current Visit: Yes Status: Acute (2) Cocaine dependence, uncomplicated Current Visit: Yes Status: Acute (3) Nicotine dependence Current Visit: Yes Status: Acute Qualifiers: Nicotine product type: cigarettes Substance use status: in withdrawal Qualified Code(s): F17.213 - Nicotine dependence, cigarettes, with withdrawal (4) Essential (primary) hypertension Current Visit: Yes Status: Chronic (5) GERD (gastroesophageal reflux disease) Current Visit: Yes Status: Chronic Qualifiers: Esophagitis presence: without esophagitis Qualified Code(s): K21.9 - Gastro-esophageal reflux disease without esophagitis - Initial Treatment Plan Initial Treatment Plan: Monitor progress
[2016-11-02] MEDS ORDERED: PT OWN MED DRAWER 7, Y5N ONE ×6 (08:48→23:04)
[2016-11-02] MEDS: PRENATAL VITAMINS W/ FOLIC ACID TABLET (FP) PO SCH (10:07)
[2016-11-02] MEDS: RANITIDINE HCL 150 MG TABLET (FP) PO SCH ×2 (10:07→21:46)
[2016-11-02] MEDS: amLODIPine BESYLATE 10 MG TABLET (FP) PO SCH (10:07)
[2016-11-02] MEDS: NICOTINE 14 MG/24 HOURS TOPICAL PATCH TD SCH (10:08)
[2016-11-02] MEDS: AMMONIUM LACTATE 12% LOTION 225 GM BOTTLE TP SCH (10:09)
[2016-11-02] MEDS: diphenhydrAMINE HCL 50 MG CAPSULE PO PRN (21:46)
[2016-11-02] MEDS: THIAMINE HCL 100 MG TABLET (FP) PO SCH (21:46)
[2016-11-03] MEDS: NITROFURANTOIN MACROCRYSTAL 50 MG CAPSULE (FP) PO SCH ×4 (06:37→23:15)
[2016-11-03] MEDS ORDERED: PT OWN MED DRAWER 7, Y5N ONE ×3 (08:57→23:15)
[2016-11-03] MEDS: RANITIDINE HCL 150 MG TABLET (FP) PO SCH ×2 (10:15→22:02)
[2016-11-03] MEDS: PRENATAL VITAMINS W/ FOLIC ACID TABLET (FP) PO SCH (10:15)
[2016-11-03] MEDS: amLODIPine BESYLATE 10 MG TABLET (FP) PO SCH (10:15)
[2016-11-03] MEDS: AMMONIUM LACTATE 12% LOTION 225 GM BOTTLE TP SCH (10:17)
[2016-11-03] MEDS: NICOTINE 14 MG/24 HOURS TOPICAL PATCH TD SCH (10:17)
[2016-11-03] MEDS: COLLOIDAL OATMEAL 1 BAR EACH TP PRN (17:04)
[2016-11-03] MEDS: THIAMINE HCL 100 MG TABLET (FP) PO SCH (22:02)
[2016-11-04] MEDS ORDERED: PT OWN MED DRAWER 7, Y5N ONE ×3 (03:27→10:30)
[2016-11-04] MEDS: NITROFURANTOIN MACROCRYSTAL 50 MG CAPSULE (FP) PO SCH ×2 (07:11→12:33)
[2016-11-04] MEDS: NICOTINE 14 MG/24 HOURS TOPICAL PATCH TD SCH (09:53)
[2016-11-04] MEDS: amLODIPine BESYLATE 10 MG TABLET (FP) PO SCH (09:53)
[2016-11-04] MEDS: RANITIDINE HCL 150 MG TABLET (FP) PO SCH ×2 (09:53→21:19)
[2016-11-04] MEDS: PRENATAL VITAMINS W/ FOLIC ACID TABLET (FP) PO SCH (09:53)
[2016-11-04] MEDS: AMMONIUM LACTATE 12% LOTION 225 GM BOTTLE TP SCH (09:54)
[2016-11-04] MEDS: THIAMINE HCL 100 MG TABLET (FP) PO SCH (21:19)
[2016-11-05] MEDS ORDERED: PT OWN MED DRAWER 7, Y5N ONE (09:10)
[2016-11-05] MEDS: PRENATAL VITAMINS W/ FOLIC ACID TABLET (FP) PO SCH (10:29)
[2016-11-05] MEDS: amLODIPine BESYLATE 10 MG TABLET (FP) PO SCH (10:29)
[2016-11-05] MEDS: NICOTINE 14 MG/24 HOURS TOPICAL PATCH TD SCH (10:29)
[2016-11-05] MEDS: RANITIDINE HCL 150 MG TABLET (FP) PO SCH ×2 (10:29→21:07)
[2016-11-05] MEDS: AMMONIUM LACTATE 12% LOTION 225 GM BOTTLE TP SCH (10:29)
[2016-11-05] MEDS: diphenhydrAMINE HCL 50 MG CAPSULE PO PRN (21:07)
[2016-11-05] MEDS: THIAMINE HCL 100 MG TABLET (FP) PO SCH (21:07)
[2016-11-06] MEDS ORDERED: PT OWN MED DRAWER 7, Y5N ONE (08:55)
[2016-11-06] MEDS: NICOTINE 14 MG/24 HOURS TOPICAL PATCH TD SCH (10:02)
[2016-11-06] MEDS: PRENATAL VITAMINS W/ FOLIC ACID TABLET (FP) PO SCH (10:02)
[2016-11-06] MEDS: AMMONIUM LACTATE 12% LOTION 225 GM BOTTLE TP SCH (10:02)
[2016-11-06] MEDS: RANITIDINE HCL 150 MG TABLET (FP) PO SCH ×2 (10:02→21:15)
[2016-11-06] MEDS: amLODIPine BESYLATE 10 MG TABLET (FP) PO SCH (10:02)
[2016-11-06] MEDS: THIAMINE HCL 100 MG TABLET (FP) PO SCH (21:15)
[2016-11-06] MEDS: diphenhydrAMINE HCL 50 MG CAPSULE PO PRN (21:15)
[2016-11-07] MEDS: PRENATAL VITAMINS W/ FOLIC ACID TABLET (FP) PO SCH (09:56)
[2016-11-07] MEDS: amLODIPine BESYLATE 10 MG TABLET (FP) PO SCH (09:56)
[2016-11-07] MEDS: AMMONIUM LACTATE 12% LOTION 225 GM BOTTLE TP SCH (09:56)
[2016-11-07] MEDS: RANITIDINE HCL 150 MG TABLET (FP) PO SCH ×2 (09:56→21:15)
[2016-11-07] MEDS: NICOTINE 14 MG/24 HOURS TOPICAL PATCH TD SCH (09:56)
[2016-11-07] MEDS: diphenhydrAMINE HCL 50 MG CAPSULE PO PRN (21:14)
[2016-11-07] MEDS: THIAMINE HCL 100 MG TABLET (FP) PO SCH (21:14)
[2016-11-08] MEDS: amLODIPine BESYLATE 10 MG TABLET (FP) PO SCH (10:03)
[2016-11-08] MEDS: PRENATAL VITAMINS W/ FOLIC ACID TABLET (FP) PO SCH (10:03)
[2016-11-08] MEDS: NICOTINE 14 MG/24 HOURS TOPICAL PATCH TD SCH (10:04)
[2016-11-08] MEDS: AMMONIUM LACTATE 12% LOTION 225 GM BOTTLE TP SCH (10:04)
[2016-11-08] MEDS: RANITIDINE HCL 150 MG TABLET (FP) PO SCH ×2 (10:04→21:08)
[2016-11-08] MEDS: THIAMINE HCL 100 MG TABLET (FP) PO SCH (21:08)
[2016-11-08] MEDS: diphenhydrAMINE HCL 50 MG CAPSULE PO PRN (21:08)
[2016-11-09] MEDS: amLODIPine BESYLATE 10 MG TABLET (FP) PO SCH (10:00)
[2016-11-09] MEDS: RANITIDINE HCL 150 MG TABLET (FP) PO SCH ×2 (10:00→21:22)
[2016-11-09] MEDS: AMMONIUM LACTATE 12% LOTION 225 GM BOTTLE TP SCH (10:00)
[2016-11-09] MEDS: PRENATAL VITAMINS W/ FOLIC ACID TABLET (FP) PO SCH (10:00)
[2016-11-09] MEDS: NICOTINE 14 MG/24 HOURS TOPICAL PATCH TD SCH (10:01)
[2016-11-09] MEDS: THIAMINE HCL 100 MG TABLET (FP) PO SCH (21:22)
[2016-11-10] MEDS: RANITIDINE HCL 150 MG TABLET (FP) PO SCH ×2 (09:56→21:12)
[2016-11-10] MEDS: amLODIPine BESYLATE 10 MG TABLET (FP) PO SCH (09:56)
[2016-11-10] MEDS: NICOTINE 14 MG/24 HOURS TOPICAL PATCH TD SCH (09:56)
[2016-11-10] MEDS: AMMONIUM LACTATE 12% LOTION 225 GM BOTTLE TP SCH (09:56)
[2016-11-10] MEDS: PRENATAL VITAMINS W/ FOLIC ACID TABLET (FP) PO SCH (09:56)
[2016-11-10] MEDS: diphenhydrAMINE HCL 50 MG CAPSULE PO PRN (21:12)
[2016-11-10] MEDS: THIAMINE HCL 100 MG TABLET (FP) PO SCH (21:12)
[2016-11-11] MEDS: COLLOIDAL OATMEAL 1 BAR EACH TP PRN (06:22)
[2016-11-11] MEDS: RANITIDINE HCL 150 MG TABLET (FP) PO SCH ×2 (09:45→21:26)
[2016-11-11] MEDS: PRENATAL VITAMINS W/ FOLIC ACID TABLET (FP) PO SCH (09:45)
[2016-11-11] MEDS: amLODIPine BESYLATE 10 MG TABLET (FP) PO SCH (09:45)
[2016-11-11] MEDS: AMMONIUM LACTATE 12% LOTION 225 GM BOTTLE TP SCH (09:46)
[2016-11-11] MEDS: NICOTINE 14 MG/24 HOURS TOPICAL PATCH TD SCH (09:46)
[2016-11-11] MEDS: THIAMINE HCL 100 MG TABLET (FP) PO SCH (21:26)
[2016-11-11] MEDS: diphenhydrAMINE HCL 50 MG CAPSULE PO PRN (21:26)
[2016-11-12] MEDS: MAG HYDROX/AL HYDROX/SIMETH 30 ML UNIT-DOSE CUP PO PRN ×2 (08:52→18:52)
[2016-11-12] MEDS: PRENATAL VITAMINS W/ FOLIC ACID TABLET (FP) PO SCH (09:57)
[2016-11-12] MEDS: AMMONIUM LACTATE 12% LOTION 225 GM BOTTLE TP SCH (09:57)
[2016-11-12] MEDS: amLODIPine BESYLATE 10 MG TABLET (FP) PO SCH (09:57)
[2016-11-12] MEDS: RANITIDINE HCL 150 MG TABLET (FP) PO SCH ×2 (09:57→21:51)
[2016-11-12] MEDS: NICOTINE 14 MG/24 HOURS TOPICAL PATCH TD SCH (09:58)
[2016-11-12] MEDS: diphenhydrAMINE HCL 50 MG CAPSULE PO PRN (21:51)
[2016-11-12] MEDS: THIAMINE HCL 100 MG TABLET (FP) PO SCH (21:51)
[2016-11-13] MEDS: MAG HYDROX/AL HYDROX/SIMETH 30 ML UNIT-DOSE CUP PO PRN ×2 (07:08→17:03)
[2016-11-13] MEDS: PRENATAL VITAMINS W/ FOLIC ACID TABLET (FP) PO SCH (09:56)
[2016-11-13] MEDS: NICOTINE 14 MG/24 HOURS TOPICAL PATCH TD SCH (09:56)
[2016-11-13] MEDS: AMMONIUM LACTATE 12% LOTION 225 GM BOTTLE TP SCH (09:56)
[2016-11-13] MEDS: amLODIPine BESYLATE 10 MG TABLET (FP) PO SCH (09:56)
[2016-11-13] MEDS: RANITIDINE HCL 150 MG TABLET (FP) PO SCH ×2 (09:56→21:31)
[2016-11-13] MEDS: ACETAMINOPHEN 325 MG TABLET (FP) PO PRN (20:30)
[2016-11-13] MEDS: THIAMINE HCL 100 MG TABLET (FP) PO SCH (21:30)
[2016-11-13] MEDS: diphenhydrAMINE HCL 50 MG CAPSULE PO PRN (21:30)
[2016-11-14] MEDS: MAG HYDROX/AL HYDROX/SIMETH 30 ML UNIT-DOSE CUP PO PRN ×2 (06:23→17:04)
[2016-11-14] MEDS: RANITIDINE HCL 150 MG TABLET (FP) PO SCH ×2 (09:40→21:34)
[2016-11-14] MEDS: amLODIPine BESYLATE 10 MG TABLET (FP) PO SCH (09:40)
[2016-11-14] MEDS: PRENATAL VITAMINS W/ FOLIC ACID TABLET (FP) PO SCH (09:40)
[2016-11-14] MEDS: AMMONIUM LACTATE 12% LOTION 225 GM BOTTLE TP SCH (09:41)
[2016-11-14] MEDS: NICOTINE 14 MG/24 HOURS TOPICAL PATCH TD SCH (09:41)
[2016-11-14] MEDS: ACETAMINOPHEN 325 MG TABLET (FP) PO PRN (11:27)
[2016-11-14] MEDS: diphenhydrAMINE HCL 50 MG CAPSULE PO PRN ×2 (21:33→22:42)
[2016-11-14] MEDS: THIAMINE HCL 100 MG TABLET (FP) PO SCH (21:33)
[2016-11-15] MEDS: MAG HYDROX/AL HYDROX/SIMETH 30 ML UNIT-DOSE CUP PO PRN (06:20)
--- NOTE | 2016-11-15 06:36 | PN ---
Psychiatric Progress Note Vital Signs: Vital Signs Period Temp Pulse Resp BP Sys/Yanes Pulse Ox Last 24 Hr 97.7 F 94-98 16-18 137-139/78-96 Date of Session: 11/15/16 Chief Complaint:: Discharge Note HPI: Patient addressing Opoid and Cocaine Dependence comorbid with Nicotine Dependence ROS: HTN, GERD were medically managed Current Medications: Active Medications Generic Name Dose Route Start Last Admin Trade Name Freq PRN Reason Stop Dose Admin Acetaminophen 650 mg 10/25/16 19:23 11/14/16 11:27 Tylenol - PO 650 mg Q4H PRN Administration FEVER OR PAIN Al Hydroxide/Mg Hydroxide 30 ml 11/11/16 15:20 11/15/16 06:20 Mylanta Oral Suspension - PO 30 ml Q6H PRN Administration DYSPEPSIA Amlodipine Besylate 10 mg 10/29/16 11:00 11/14/16 09:40 Norvasc - PO 10 mg DAILY SHARI Administration Colloidal Oatmeal 1 applic 10/28/16 09:49 11/11/16 06:22 Aveeno Soap - TP 1 applic DAILY PRN Administration HYGEINE Diphenhydramine HCl 50 mg 10/25/16 19:23 11/14/16 22:42 Benadryl - PO 50 mg HSMR1 PRN Administration INSOMNIA Eucalyptus/Menthol/Phenol/Sorbitol 1 each 10/25/16 19:23 Cepastat Lozenge - MM Q4H PRN SORE THROAT Guaifenesin 10 ml 10/25/16 19:23 Robitussin Dm - PO Q6H PRN COUGH Lactic Acid 1 applic 10/28/16 10:00 11/14/16 09:41 Lac-Hydrin 12 TP Not Given DAILY SHARI Loperamide HCl 4 mg 10/25/16 19:23 Imodium - PO Q6H PRN DIARRHEA Nicotine 14 mg 10/26/16 10:00 11/14/16 09:41 Nicoderm Patch - TD Not Given DAILY SHARI Nicotine Polacrilex 2 mg 10/25/16 19:23 Nicorette Gum - BC Q2H PRN NICOTINE REPLACEMENT RX Ondansetron HCl 8 mg 10/28/16 09:36 Zofran Odt - SL Q4H PRN NAUSEA AND/OR VOMITING Multivit/Folic Acid/Iron 1 tab 10/26/16 10:00 06/04/17 09:40 Vitamins (Sjr) - PO 1 tab DAILY SHARI Administration Pseudoephedrine/Triprolidine 1 combo 10/25/16 19:23 Actifed - PO TID PRN NASAL CONGESTION Ranitidine HCl 150 mg 10/25/16 22:00 11/14/16 21:34 Zantac - PO 150 mg BID HSARI Administration Thiamine HCl 100 mg 10/25/16 22:00 11/14/16 21:33 Vitamin B1 - PO 100 mg HS SAHRI Administration Current Side Effect: No Lab tests ordered: Yes Lab tests reviewed: Yes Provider note:: Patient has completed this program today. He has met his treatment goals and will continue to address his issues in outpatient treatment at . Told credit underwriter that from his participation in this program, he has learned to be more responsible for himself and to distance himself from people he was using with. He is stable for discharge today Total face to face time:: 35 Mental Status Exam - Mental Status Exam Alert and Oriented to: Time, Place, Person Cognitive Function: Fair Mood: Hopeful, Euthymic Affect: Appropriate Patient Behavior: Cooperative Speech Pattern: Clear Voice Loudness: Normal Thought Process: Intact, Goal Oriented Thought Disorder: Not Present Hallucinations: Denies Suicidal Ideation: Denies Homicidal Ideation: Denies Insight/Judgement: Fair Sleep: Well Appetite: Good Muscle strength/Tone: Normal Gait/Station: Normal Psychiatric Treatment Plan - Problem List (1) Opioid dependence with withdrawal Current Visit: Yes (2) Cocaine dependence, uncomplicated Current Visit: Yes (3) Nicotine dependence Current Visit: Yes Qualifiers: Nicotine product type: cigarettes Substance use status: in withdrawal Qualified Code(s): F17.213 - Nicotine dependence, cigarettes, with withdrawal (4) Essential (primary) hypertension Current Visit: Yes (5) GERD (gastroesophageal reflux disease) Current Visit: Yes Qualifiers: Esophagitis presence: without esophagitis Qualified Code(s): K21.9 - Gastro-esophageal reflux disease without esophagitis Initial treatment plan: Patient is discharged today and referred to for outpatient treatment
[2016-11-15 07:45] VITALS: TEMP 98.4
[2016-11-15] MEDS: RANITIDINE HCL 150 MG TABLET (FP) PO SCH (09:04)
[2016-11-15] MEDS: amLODIPine BESYLATE 10 MG TABLET (FP) PO SCH (09:04)
[2016-11-15] MEDS: PRENATAL VITAMINS W/ FOLIC ACID TABLET (FP) PO SCH (09:04)
[2016-11-15] MEDS: AMMONIUM LACTATE 12% LOTION 225 GM BOTTLE TP SCH (09:05)
[2016-11-15] MEDS: NICOTINE 14 MG/24 HOURS TOPICAL PATCH TD SCH (09:05)
[2016-11-15 10:07] VITALS: BP 118/77; PULSE 104
== END 2016-11-15 09:35 | disposition home or self-care (01) | DRG 895 ==
LOC: YASAS 13:59 → Y3N 18:44 → Y3W 11-01 11:03
PROVIDERS: ADMIT Internal Medicine; ATTEND Psychiatry & Neurology Psychiatry
PROC: HZ2ZZZZ Detoxification Services for Substance Abuse Treatment (ICD-10-PCS; 2016-11-01)
PROC: HZ42ZZZ Group Counseling for Substance Abuse Treatment, Cognitive-Behavioral (ICD-10-PCS; principal; 2016-11-15)
DX: F11.23 Opioid dependence with withdrawal (principal); F14.20 Cocaine dependence, uncomplicated; F17.213 Nicotine dependence, cigarettes, with withdrawal; F34.1 Dysthymic disorder; I10 Essential (primary) hypertension; K21.9 Gastro-esophageal reflux disease without esophagitis; R63.4 Abnormal weight loss; Z68.21 Body mass index [BMI] 21.0-21.9, adult
CPT/HCPCS: 36415; 80053; 81003; 81015; 85027; 86593; 93005; 93010